=== PATIENT | female | born 1975 | race Two or more races ===

== ENCOUNTER 2017-01-03 12:09 | Emergency (ER) | payer MEDICAID ==
[~2017-01-03] VITALS: Ht 160 cm; Wt 55.0 kg
[2017-01-03 12:12] VITALS: BP 118/70
[2017-01-03] MEDS ORDERED: IBUP-2028 PO (12:15)
== END 2017-01-03 17:54 | disposition left against medical advice (07) ==
LOC: ER 13:06
DX: R10.9 Unspecified abdominal pain (principal); Z53.21 Procedure and treatment not carried out due to patient leaving prior to being seen by health care provider